=== PATIENT | female | born 2000 | race Two or more races ===

== ENCOUNTER 2023-07-12 23:48 | Inpatient (IN) | payer OTHER ==
[~2023-07-12] VITALS: Ht 157.5 cm; Wt 67.6 kg
[2023-07-13 00:35] LABS: HEMATOCRIT 37.5 % (36.0-45.00); HEMOGLOBIN 12.5 g/dL (12.0-15.00); MEAN CELL VOLUME 92.6 fL (80.00-100.00); MEAN CORPUSCULAR HEMOGLOBIN 30.7 pg (27.00-32.0); MEAN CORPUSCULAR HGB CONC 33.2 g/dl (32.0-36.0); PLATELET COUNT 244 K/uL (150-450); RED BLOOD COUNT 4.05 M/uL (4.00-6.00); RED CELL DISTRIBUTION WIDTH 13.4 % (11.5-14.5)
[2023-07-13 01:03] LABS: ALBUMIN 2.9 gm/dL (3.4-5.0); BILIRUBIN TOTAL 0.56 mg/dL (0.3-1.2); CALCIUM 9.8 mg/dL (8.5-10.1); CREATININE SERUM 0.56 mg/dL (0.55-1.02); GFR 135.37; GLOBULINA 4.3 G/DL (2.4-3.5); POTASSIUM 4.13 mEq/L (3.5-5.1); TOTAL PROTEIN 7.2 gm/dL (6.4-8.2)
[2023-07-13 01:47] LABS: FIBRINOGEN 532 mg/dL (187.0-446.0); INR < 0.93; PARTIAL THROMBOPLASTIN TIME 28.5 SECONDS (22.0-34.0); PROTHROMBIN TIME 9.5 SECONDS (9.0-11.5)
[2023-07-13 02:17] LABS: ABG PH 7.241 (7.35-7.45); ABG PO2 42.7 mmHg (80-100); ABG pCO2 39.1 mmHg (35-45); BASE EXCESS -10.3 mmol/l; BICARBONATE 16.4 mmol/l (23-25); SaO2 66.7 %
[2023-07-13 02:18] LABS: Tco2 17.6 mmol/l; o2 21 %
== END 2023-07-15 13:56 | disposition home or self-care (01) | DRG 807 ==
LOC: LDR 23:48 → OB/GYN 23:48
PROVIDERS: ADMIT Student in an Organized Health Care Education/Training Program; ATTEND Student in an Organized Health Care Education/Training Program
PROC: 4A1HXCZ Monitoring of Products of Conception, Cardiac Rate, External Approach (ICD-10-PCS; 2023-07-12)
PROC: 10E0XZZ Delivery of Products of Conception, External Approach (ICD-10-PCS; principal; 2023-07-13)
PROC: 0HQ9XZZ Repair Perineum Skin, External Approach (ICD-10-PCS; 2023-07-13)
DX: O70.0 First degree perineal laceration during delivery (principal); Z37.0 Single live birth; O62.3 Precipitate labor; Z3A.39 39 weeks gestation of pregnancy; Z20.822 Contact with and (suspected) exposure to COVID-19